=== PATIENT | female | born 2000 | race Caucasian/White ===

== ENCOUNTER 2019-05-03 11:31 | Emergency (ER) | payer SELFPAY ==
[2019-05-03 11:59] VITALS: BP 145/98
--- NOTE | 2019-05-03 12:06 | UC ---
Skin Complaint HPI - HPI Summary HPI Summary: 18 yo female presents with cat scratch. She tells me that she was at home earlier today and opened her bedroom door and her cat was in the doorway - she scooted the cat out of the way with her foot and the cat was startled and scratched pt's LEFT foot. Pt has a laceration to the top of her left foot that is bleeding. Bandaged the area and came to . Cat is UTD on vaccinations. Last tetanus of pt was in 2017. - History of Current Complaint Chief Complaint: UCBiteInjury Time Seen by Provider: 05/03/19 12:06 Stated Complaint: CAT SCRATCH Hx Obtained From: Patient Hx Last Menstrual Period: 7 days ago Onset/Duration: Sudden Onset Onset Severity: Moderate Current Severity: Moderate Pain Intensity: 6 - Allergy/Home Medications Allergies/Adverse Reactions: Allergies Allergy/AdvReac Type Severity Reaction Status Date / Time procaine [From Novocain] Allergy Swelling Verified 05/03/19 12:01 Of Face,Lips,& Throat Home Medications: Home Medications Acetaminophen [Tylenol] 650 mg PO Q4HR PRN 03/06/14 [History Confirmed 05/03/19] Amoxicillin/Clavulanate TAB* [Augmentin TAB 875*] 875 mg PO BID #14 tab [Rx] PMH/Surg Hx/FS Hx/Imm Hx - Additional Past Medical History Additional PMH: None - Surgical History Surgical History: None - Family History Known Family History: Negative: Cardiac Disease, Hypertension, Diabetes - Social History Occupation: Employed Full-time Lives: With Family Alcohol Use: None Substance Use Type: None Smoking Status (MU): Never Smoked Tobacco Household Exposure Type: Cigarettes - Immunization History Most Recent Tetanus Shot: 2017 Review of Systems All Other Systems Reviewed And Are Negative: No Constitutional: Positive: Negative Skin: Positive: Other - Cat scratch foot Respiratory: Positive: Negative Cardiovascular: Positive: Negative Neurological/Mental Status: Positive: Negative Psychological: Positive: Negative Physical Exam - Summary Physical Exam Summary: GENERAL: NAD. WDWN. No pain distress. SKIN: LEFT FOOT: Dorsal aspect with four superficial abrasion-like cat scratches. One 1.0cm x 3mm partial thickness scratch/laceration with mild active bleeding. Mildly TTP. No FB and clean appearing. CHEST: No accessory muscle use. Breathing comfortably and in no distress. CV: Pulses intact. Cap refill <2seconds MSK: Moves all toes NEURO: Alert. PSYCH: Age appropriate behavior. Triage Information Reviewed: Yes Vital Signs: Initial Vital Signs Temp 98.9 F 05/03/19 11:54 Pulse 96 05/03/19 11:54 Resp 18 05/03/19 11:54 BP 145/98 05/03/19 11:54 Pulse Ox 99 05/03/19 11:54 Vital Signs Reviewed: Yes Course/Dx - Course Course Of Treatment: Wound irrigated with saline 250mL and bandaged with telfa and coban. Will place her on augmentin and have her change the dressing daily. Recheck for new or worsening symptoms. - Diagnoses Provider Diagnosis: Cat scratch Discharge ED - Sign-Out/Discharge Documenting (check all that apply): Patient Departure All imaging exams completed and their final reports reviewed: No Studies - Discharge Plan Condition: Stable Disposition: HOME Prescriptions: Amoxicillin/Clavulanate TAB* [Augmentin TAB 875*] 875 mg PO BID #14 tab Patient Education Materials: Laceration (ED) Referrals: Suman Messina, [employer] [Primary Care Provider] - Additional Instructions: Your blood pressure was high at todays visit. Please see your primary provider within 4 weeks for recheck and re-evaluation. Change the dressing daily and keep the area clean with soap and water Take the antibiotic as prescribed Be rechecked for any redness, drainage, streaking, fever, or swelling. - Billing Disposition and Condition Condition: STABLE Disposition: Home
== END 2019-05-03 12:22 | disposition home or self-care (01) ==
LOC: UCEAST 11:31
DX: S90.812A Abrasion, left foot, initial encounter (principal); Z88.4 Allergy status to anesthetic agent; W55.03XA Scratched by cat, initial encounter; Y92.003 Bedroom of unspecified non-institutional (private) residence as the place of occurrence of the external cause
CPT/HCPCS: 99212; G0463

== ENCOUNTER 2019-05-05 10:31 | Emergency (ER) | payer SELFPAY ==
--- NOTE | 2019-05-05 11:35 | ED ---
Skin Complaint - HPI Summary HPI Summary: This patient is a 18 y/o female presenting to [facility] c/o increased redness on left foot s/p cat scratch on 05/03/19. Patient reports she owns a male cat and two days ago her male cat was meowing at a female stray cat that was outside. The patient accidentally tapped her cat with her foot and her cat scratched her left foot. Per patient's mother, their cat is UTD on all vaccinations. Patient went to Urgent Care and they advised her to keep the wounds open and placed the patient on Augmentin. Per mother, the redness on patient's left foot has doubled up since last night and is now draining green discharge. Patient states her left foot today is painful as well. Denies fever or chills. Patient's last tetanus shot was in 2017. Denies tobacco, alcohol, and drug use. No PMHx. Home Medications Medication Instructions Recorded Confirmed Type Amoxicillin/Clavulanate TAB* 875 mg PO BID #14 tab 05/03/19 05/05/19 Rx [Augmentin TAB 875*] Ibuprofen TAB* [Motrin TAB* 600 MG] 600 mg PO Q6H PRN 05/05/19 05/05/19 History - History of Current Complaint Chief Complaint: EDExtremityLower Time Seen by Provider: 05/05/19 11:22 Stated Complaint: POSS INFECTED CAT SCRATCH PER PT Hx Obtained From: Patient, Family/Machine Heel Sprayer - Patient's mother Hx Last Menstrual Period: 7 days ago Onset/Duration: Started Days Ago, Still Present Timing: Lasting Days Current Severity: Moderate Pain Intensity: 7 Pain Scale Used: 0-10 Numeric Skin Location: Foot - left Character: Pain, Redness Aggravating Symptom(s): Nothing Alleviating Symptom(s): Nothing Associated Signs & Symptoms: Tenderness, Red Streaks Related History: Other: - s/p cat scratched left foot on 05/03/19. - Allergy/Home Medications Allergies/Adverse Reactions: Allergies Allergy/AdvReac Type Severity Reaction Status Date / Time procaine [From Novocain] Allergy Swelling Verified 05/05/19 10:39 Of Face,Lips,& Throat Home Medications: Home Medications Amoxicillin/Clavulanate TAB* [Augmentin TAB 875*] 875 mg PO BID #14 tab 02/24/ 20 [Rx Confirmed 05/05/19] Ibuprofen TAB* [Motrin TAB* 600 MG] 600 mg PO Q6H PRN 05/05/19 [History Confirmed 05/05/19] PMH/Surg Hx/FS Hx/Imm Hx Endocrine/Hematology History: Denies: Hx Diabetes Respiratory History: Denies: Hx Asthma - Surgical History Surgical History: Yes Surgery Procedure, Year, and Place: Tonsils and Adenoids - Immunization History Date of Tetanus Vaccine: 2016 Infectious Disease History: No Infectious Disease History: Denies: Traveled Outside the [place] in Last 30 Days - Family History Known Family History: Negative: Cardiac Disease, Hypertension, Diabetes - Social History Alcohol Use: None Hx Substance Use: No Substance Use Type: Reports: None Hx Tobacco Use: No Smoking Status (MU): Never Smoked Tobacco Review of Systems Negative: Fever Cardiovascular: Negative Respiratory: Negative Gastrointestinal: Negative Musculoskeletal: Other - POSITIVE: left foot pain Skin: Other - POSITIVE: left foot redness and discharge All Other Systems Reviewed And Are Negative: Yes Physical Exam - Summary Physical Exam Summary: VITAL SIGNS: Reviewed. GENERAL: Patient is a well-developed and nourished female who is lying comfortable in the stretcher. Patient is not in any acute respiratory distress. HEAD AND FACE: No signs of trauma. No ecchymosis, hematomas or skull depressions. No sinus tenderness. EYES: PERRLA, EOMI x 2, No injected conjunctiva, no nystagmus. EARS: Hearing grossly intact. Ear canals and tympanic membranes are within normal limits. MOUTH: Oropharynx within normal limits. NECK: Supple, trachea is midline, no adenopathy, no JVD, no carotid bruit, no c- spine tenderness, neck with full ROM. CHEST: Symmetric, no tenderness at palpation LUNGS: Clear to auscultation bilaterally. No wheezing or crackles. CVS: Regular rate and rhythm, S1 and S2 present, no murmurs or gallops appreciated. ABDOMEN: Soft, non-tender. No signs of distention. No rebound no guarding, and no masses palpated. Bowel sounds are normal. EXTREMITIES: Left foot swelling and erythema with a couple of scratches on the dorsal aspect of the left foot. NEURO: Alert and oriented x 3. No acute neurological deficits. Speech is normal and follows commands. SKIN: Dry and warm Triage Information Reviewed: Yes Vital Signs On Initial Exam: Initial Vitals Temp Pulse Resp BP Pulse Ox 98.3 F 103 18 139/82 99 05/05/19 10:35 05/05/19 10:35 05/05/19 10:35 05/05/19 10:35 05/05/19 10:35 Vital Signs Reviewed: Yes Procedures - Sedation Patient Received Moderate/Deep Sedation with Procedure: No Diagnostics - Vital Signs Vital Signs Temp Pulse Resp BP Pulse Ox 05/05/19 10:35 98.3 F 103 18 139/82 99 - Laboratory Result Diagrams: 05/05/19 11:29 05/05/19 11:29 Lab Statement: Any lab studies that have been ordered have been reviewed, and results considered in the medical decision making process. Course/Dx - Course Assessment/Plan: This patient is a 18 y/o female presenting to [facility] c/o increased redness on left foot s/p cat scratch on 05/03/19. Patient reports she owns a male cat and two days ago her male cat was meowing at a female stray cat that was outside. The patient accidentally tapped her cat with her foot and her cat scratched her left foot. Per patient's mother, their cat is UTD on all vaccinations. Patient went to Urgent Care and they advised her to keep the wounds open and placed the patient on Augmentin. Per mother, the redness on patient's left foot has doubled up since last night and is now draining green discharge. Patient states her left foot today is painful as well. Denies fever or chills. Patient's last tetanus shot was in 2017. Denies tobacco, alcohol, and drug use. No PMHx. Blood work w/o a significant abnormality except for WBC of 16.3 with absolute neutrophils of 12.6, glucose 102, and CRP of 12.6. In the ED course the patient was given a dose of Zosyn for cellulitis. The patient has only been taking Augmentin for one day. Therefore, the patient will be discharged home and follow up from her primary care physician. I marked the area of the erythema and if it worsens from that marked area the patient will return to the emergency department for IV antibiotics. - Diagnoses Provider Diagnoses: Cellulitis Discharge ED - Sign-Out/Discharge Documenting (check all that apply): Patient Departure - Discharge home - Discharge Plan Condition: Stable Disposition: HOME Patient Education Materials: Cellulitis (ED) Referrals: Suman Messina, [employer] [Primary Care Provider] - Additional Instructions: PLEASE FOLLOW UP WITH YOUR PRIMARY CARE PROVIDER IN 2-3 DAYS. RETURN TO THE EMERGENCY DEPARTMENT FOR ANY WORSENING OR NEW SYMPTOMS. - Billing Disposition and Condition Condition: STABLE Disposition: Home - Attestation Statements Document Initiated by Sarita: Yes Documenting Scribe: Seema Genao Provider For Whom Scribe is Documenting (Include Credential): Forest Hennessy MD Scribe Attestation: Seema Escobar, scribed for Forest Hennessy MD on 05/07/19 at 0753. Scribe Documentation Reviewed: Yes Provider Attestation: The documentation as recorded by the Seema cramer accurately reflects the service I personally performed and the decisions made by Forest oneil MD Status of Scribe Document: Viewed
[2019-05-05 11:39] LABS: Hematocrit 41 % (35-47); Hemoglobin 13.9 g/dL (12.0-16.0); Mean Corpuscular HGB Conc 34 g/dL (31-36); Mean Corpuscular Hemoglobin 29 pg (27-31); Mean Corpuscular Volume 87 fL (80-97); Mean Platelet Volume 8.3 fL (7.4-10.4); Platelet Count 334 10^3/uL (150-450); Red Blood Count 4.77 10^6 /uL (3.70-4.87); Red Cell Distribution Width 17 % (10-15); White Blood Count 16.3 10^3/uL (3.5-10.8)
[2019-05-05] MEDS ORDERED: Piperacillin/Tazobac ADVAN(*) 3.375 GM in NS 0.9% 100 ML* 100 ML IVPB ONE (11:44)
[2019-05-05 11:56] LABS: ALT 15 U/L (7-52); AST 15 U/L (13-39); Albumin 4.7 g/dL (3.2-5.2); Albumin/Globulin Ratio 1.4 (1-3); Alkaline Phosphatase 52 U/L (34-104); Anion Gap 7 mmol/L (2-11); Blood Urea Nitrogen 17 mg/dL (6-24); C Reactive Protein 12.62 mg/L (<8.01); CO2 Carbon Dioxide 26 mmol/L (22-32); Calcium 9.7 mg/dL (8.6-10.3); Chloride 103 mmol/L (101-111); EGFR African American 133.5 (>60); EGFR Non-African American 110.3 (>60); Globulin 3.3 g/dL (2-4); Glucose 102 mg/dL (70-100); Potassium 4.1 mmol/L (3.5-5.0); Sodium 136 mmol/L (135-145)
[2019-05-05 12:03] LABS: HCG Pregnancy < 0.60 mIU/mL
[2019-05-05 12:54] LABS: ABS Basophils 0.2 10^3/ul (0-0.2); ABS Eosinophils 0.1 10^3/ul (0-0.6); ABS Lymphocytes 2.7 10^3/ul (1.0-4.8); ABS Monocytes 0.6 10^3/ul (0-0.8); ABS Neutrophils 12.6 10^3/ul (1.5-7.7); Eosinophil % 0.8 %; Lymphocyte % 16.8 %
[2019-05-05 13:39] VITALS: BP 138/87
== END 2019-05-05 14:00 | disposition home or self-care (01) ==
LOC: ED 10:31
DX: L03.116 Cellulitis of left lower limb (principal); Z88.4 Allergy status to anesthetic agent
CPT/HCPCS: 36415; 80053; 84702; 85025; 86140; 96365; 99282; J2543